=== PATIENT | female | born 1950 | race Caucasian/White ===

== ENCOUNTER → 2016-05-31 | Day surgery (SDC) | payer MEDICARE ==
[~2016-05-31] MED LIST: ASPI325T PO; BIOT1SUB SL; DIPH25CA PO; FURO1TAB60 PO; HYDR-3533 PO; IBUP-988 PO; LACTATED RINGER'S 1000 ML INJ 1,000 ML ONE; LACTCAP8 PO; LISI-515 PO; MAGN100T2 PO; METF500T PO; METO25TA3 PO; OMEGCAP19 PO; POTA10CA PO; PROPOFOL 500 MG/50 ML BTL IV ONE; REST15CA PO; SYNT25TA PO; ZOCO20TA PO
--- NOTE | 2016-05-31 13:00 | GIPROC ---
[facility] [address] [facility], [address] COLONOSCOPY PROCEDURE REPORT EXAM DATE: 05/31/2016 PATIENT NAME: Felicitas Aguilar MR #: [id number] BIRTHDATE: 1950 ENDOSCOPIST: Pallavi Walden MD ORDER #: [id number] TECHNICAL TESTING ENGINEER: Nadira Dc RN STATUS: outpatient INDICATIONS: The patient is a 66 yr old female here for a colonoscopy due to patient's immediate family history of colon cancer PROCEDURE PERFORMED: Colonoscopy, diagnostic MEDICATIONS: None and Per Anesthesia. PREP QUALITY: The [place] Bowel Prep Score was Right colon 2, Mid colon 2, and Left colon 3. Total = 7. PREP TYPE:GoLytely ESTIMATED BLOOD LOSS: None CONSENT: The patient understands the risks and benefits of the procedure and understands that these risks include, but are not limited to: sedation, allergic reaction, infection, perforation and/or bleeding. Alternative means of evaluation and treatment include, among others: physical exam, x-rays, and/or surgical intervention. The patient elects to proceed with this endoscopic procedure. medical equipment was checked for proper function. Hand hygiene and appropriate measures for infection prevention was taken. After the risks, benefits and alternatives of the procedure were thoroughly explained, Informed consent was verified, confirmed and timeout was successfully executed by the treatment team. A digital exam revealed external hemorrhoids The EC-[id number] ([id number]) endoscope was introduced through the anus and advanced to the cecum, which was identified by both the appendix and ileocecal valve. The instrument was then slowly withdrawn as the colon was fully examined. COLON FINDINGS: Moderate diverticulosis was noted in the sigmoid colon. No bleeding was noted from the diverticulosis. Retroflexed views revealed internal hemorrhoids and Retroflexed views revealed small internal hemorrhoids The scope was then completely withdrawn from the patient and the procedure terminated. PROCEDURE WITHDRAWAL TIME:6minutes ADVERSE EVENTS: There were no complications. IMPRESSIONS: 1. Moderate diverticulosis was noted in the sigmoid colon 2. Retroflexed views revealed internal hemorrhoids 3. Retroflexed views revealed small internal hemorrhoids 4. Revealed external hemorrhoids RECOMMENDATIONS: 1. Benefiber 2 tsp daily 2. Continue surveillance 3. Yearly hemoccult 4. High fiber diet 5. No seeds, nuts and popcorn in diet RECALL: Return 5 years Colonoscopy Pallavi Walden MD eSigned: Pallavi Walden MD 05/31/2016 12:59 PM cc: Timbo Hartman and Uriel Gilmore M.D. PATIENT NAME: Felicitas Aguilar MR#: [id number]
== END | disposition home or self-care (01) ==
LOC: ESDC 11:00
PROVIDERS: ATTEND Internal Medicine Gastroenterology
DX: Z12.11 Encounter for screening for malignant neoplasm of colon (principal); K57.90 Diverticulosis of intestine, part unspecified, without perforation or abscess without bleeding; K64.8 Other hemorrhoids; K64.4 Residual hemorrhoidal skin tags; K21.9 Gastro-esophageal reflux disease without esophagitis; K29.70 Gastritis, unspecified, without bleeding; K20.9 Esophagitis, unspecified
CPT/HCPCS: 00740; 00810; 43239; 45378; 88305; 88312; J3010; J7120

== ENCOUNTER 2016-06-15 13:12 | Inpatient (IN) | payer MEDICARE ==
[~2016-06-15] VITALS: Ht 162.6 cm; Wt 125.0 kg
[~2016-06-15 13:12] MED LIST changes: -BIOT1SUB SL; -IBUP-988 PO; -LACTATED RINGER'S 1000 ML INJ 1,000 ML ONE; -LACTCAP8 PO; -OMEGCAP19 PO; -PROPOFOL 500 MG/50 ML BTL IV ONE
[2016-06-27] MEDS ORDERED: LACTCAP8 PO (14:37)
[2016-06-27] MEDS ORDERED: BIOT1SUB SL (14:37)
[2016-06-28] MEDS ORDERED: ceFAZolin 2 GM PREMIX 50 ML IV SCH (06:00)
[2016-06-28] MEDS ORDERED: ACETAMINOPHEN 1000 MG/100 ML VIAL IV SCH (06:00)
[2016-06-28] MEDS ORDERED: POVIDONE IODINE 5% (ANTISEPSIS KIT) 4 APPLICATIONS EACH NARE PRN (06:00)
[2016-06-28] MEDS ORDERED: METOPROLOL TARTRATE 25 MG TAB PO PRN (06:00)
[2016-06-28] MEDS ORDERED: metroNIDAZOLE 500 MG INJ 100 ML IV SCH (06:00)
[2016-06-28] MEDS ORDERED: SCOPOLAMINE 1.5 MG PATCH T-DERMAL SCH (06:00)
[2016-06-28] MEDS ORDERED: APREPITANT 40 MG CAP PO SCH (06:00)
[2016-06-28] MEDS ORDERED: INSULIN HUMAN REGULAR 1,000 UNITS/10 ML VIAL SQ PRN (06:00)
[2016-06-28] MEDS ORDERED: ONDANSETRON HCL 4 MG/2 ML VIAL IV PUSH SCH (06:00)
[2016-06-28] MEDS ORDERED: LACTATED RINGER'S 1000 ML IV PRN (06:00)
[2016-06-28] MEDS ORDERED: SODIUM CHLORID 0.9% 500 ML IV PRN (06:00)
[2016-06-28] MEDS ORDERED: CHLORHEXIDINE GLUCONATE 2 % 1 PACK (2 CLOTHS) TOPICAL PRN (06:00)
[2016-06-28] MEDS ORDERED: OMEGCAP19 PO (06:32)
[2016-06-28] MEDS ORDERED: BUPIVACAINE/EPINEPHRINE 0.25% 50 ML VIAL ONE (06:34)
[2016-06-28 06:40] VITALS: BP 112/59; PULSE 61; RESP 16; TEMP 97.7; O2SAT 96
[2016-06-28] MEDS ORDERED: fentaNYL CITRATE 250 MCG/5 ML AMP ONE (06:59)
[2016-06-28] MEDS ORDERED: MORPHINE SULFATE 4 MG/ML INJ ONE (06:59)
[2016-06-28] MEDS ORDERED: DICLOFENAC SODIUM 37.5 MG/ML VIAL IV PUSH ONE (06:59)
[2016-06-28] MEDS ORDERED: MIDAZOLAM HCL 2 MG/2 ML VIAL ONE (07:31)
[2016-06-28] MEDS ORDERED: METHYLENE BLUE 100 MG/10 ML VIAL IV ONE (08:44)
[2016-06-28] MEDS: 1/2 NS + KCL 20 MEQ INJ 1,000 ML IV SCH ×4 (10:01→22:47)
[2016-06-28] MEDS ORDERED: MORPHINE SULFATE 30 MG/30 ML PCA IV SCH (10:15)
[2016-06-28] MEDS ORDERED: ONDANSETRON HCL 4 MG/2 ML VIAL IV PRN (10:15)
[2016-06-28] MEDS ORDERED: SODIUM CHLORIDE 0.9% FLUSH 10 ML FLUSH IV FLUSH PRN (10:15)
[2016-06-28] MEDS ORDERED: diphenhydrAMINE HCL 50 MG/ML VIAL IV PRN (10:15)
[2016-06-28] MEDS ORDERED: NALOXONE HCL 0.4 MG/ML AMP IV PRN (10:15)
[2016-06-28] MEDS ORDERED: ACETAMINOPHEN 325MG/HYDROcodone 7.5MG/15ML UDC PO PRN (10:15)
[2016-06-28] MEDS ORDERED: ENALAPRILAT 1.25 MG/ML VIAL IV PUSH PRN (10:15)
[2016-06-28] MEDS ORDERED: diphenhydrAMINE HCL ELIXIR 12.5 MG/5 ML CUP PO PRN (10:15)
[2016-06-28] MEDS ORDERED: Post-op Orders (for Pharmacy) MISC OTHER ONE (10:33)
[2016-06-28] MEDS ORDERED: *HYDROmorphone PF 1 MG VIAL PERIprocedural Use ONLY ONE (10:46)
[2016-06-28] MEDS: METOCLOPRAMIDE HCL 10 MG/2 ML VIAL IV PUSH SCH ×3 (11:00→22:46)
[2016-06-28] MEDS ORDERED: *ONDANSETRON 4 MG VIAL PERIprocedural Use ONLY ONE (11:07)
[2016-06-28] MEDS ORDERED: *PROMETHAZINE 25 MG/ML VIAL PERIprocedural use ONLY ONE (11:25)
[2016-06-28] MEDS: RESP: ALBUTEROL 2.5 MG/3 ML NEB (SCH) INH ×3 (12:00→20:01)
[2016-06-28] MEDS ORDERED: LACTATED RINGER'S 1000 ML INJ 1,000 ML IV ONE (12:00)
[2016-06-28] MEDS ORDERED: PROPOFOL 200 MG/20 ML AMP IV ONE (12:00)
[2016-06-28] MEDS ORDERED: ePHEDrine/NS 25 MG/5 ML SYR IV ONE (12:00)
[2016-06-28] MEDS: PCA - TOTAL MG MORPHINE DELIVERED PER SHIFT SCH ×2 (12:54→22:00)
[2016-06-28 14:28] VITALS: O2SAT 97
[2016-06-28] MEDS: metroNIDAZOLE 500 MG INJ 100 ML IV SCH ×2 (15:04→22:46)
[2016-06-28] MEDS: ENOXAPARIN SODIUM 40 MG/0.4 ML SYRINGE SQ SCH (15:09)
[2016-06-28 16:00] VITALS: BP 111/53; PULSE 79; RESP 17; TEMP 97.6; O2SAT 100
[2016-06-28 16:51] VITALS: O2SAT 99
[2016-06-28 20:00] VITALS: BP 115/58; PULSE 75; RESP 19; TEMP 96.8; O2SAT 100
[2016-06-28] MEDS: SODIUM CHLORIDE 0.9% FLUSH 10 ML FLUSH IV FLUSH SCH (20:53)
[2016-06-29] VITALS (11 sets, daily range): BP systolic 107–151; BP diastolic 55–67; PULSE 73–96; RESP 17–20; TEMP 97.8–98.3; O2SAT 92–98
[2016-06-29] MEDS: 1/2 NS + KCL 20 MEQ INJ 1,000 ML IV SCH ×4 (00:07→18:12)
[2016-06-29] MEDS: RESP: ALBUTEROL 2.5 MG/3 ML NEB (SCH) INH ×6 (00:45→21:16)
[2016-06-29] MEDS: metroNIDAZOLE 500 MG INJ 100 ML IV SCH (04:29)
[2016-06-29] MEDS: METOCLOPRAMIDE HCL 10 MG/2 ML VIAL IV PUSH SCH (04:29)
[2016-06-29] MEDS: PCA - TOTAL MG MORPHINE DELIVERED PER SHIFT SCH ×2 (04:30→14:00)
[2016-06-29 04:39] LABS: BICARBONATE 26.2 MEQ/L (21.0-32.0); MAGNESIUM 2.1 MG/DL (1.5-2.5); POTASSIUM 4.3 MEQ/L (3.5-5.1)
[2016-06-29 04:43] LABS: AUTOMATED NEUTROPHIL # 8.6 TH/MM3 (1.8-7.7); BASOPHIL % 0.2 % (0.0-2.0); EOSINOPHIL # 0.1 TH/MM3 (0-0.4); EOSINOPHIL % 0.7 % (0.0-4.0); HEMATOCRIT 34.2 % (35.0-46.0); HEMO FLAGS DIFF FINAL; LYMPH % 7.5 % (9.0-44.0); LYMPHOCYTE # 0.8 TH/MM3 (1.0-4.8); MEAN CELL VOLUME 90.5 FL (80.0-100.0); MEAN CORPUSCULAR HEMOGLOBIN 29.6 PG (27.0-34.0); MEAN CORPUSCULAR HGB CONC 32.7 % (32.0-36.0); MONO % 6.2 % (0.0-8.0); NEUT % 85.4 % (16.0-70.0); PLATELET COUNT 211 TH/MM3 (150-450); RED BLOOD COUNT 3.77 MIL/MM3 (4.00-5.30); RED CELL DISTRIBUTION WIDTH 14.6 % (11.6-17.2); WHITE BLOOD COUNT 10.1 TH/MM3 (4.0-11.0)
[2016-06-29] MEDS: PANTOPRAZOLE SOD 40 MG DELAYED RELEASE TAB PO SCH (08:40)
[2016-06-29] MEDS: SODIUM CHLORIDE 0.9% FLUSH 10 ML FLUSH IV FLUSH SCH ×2 (08:40→21:00)
[2016-06-29] MEDS ORDERED: METOCLOPRAMIDE HCL 10 MG/2 ML VIAL IV PUSH PRN (11:00)
[2016-06-29] MEDS: LISINOPRIL 20 MG TAB PO SCH (12:28)
[2016-06-29] MEDS: LEVOTHYROXINE SODIUM 25 MCG TAB PO SCH (12:28)
--- NOTE | 2016-06-29 14:48 | HHI.PR ---
Subjective Subjective Notes 66yo female POD#1 VSG. Sitting up in bed, in no acute distress. Passing flatus Objective Vitals/I&O Vital Signs Date Time Temp Pulse Resp B/P Pulse Ox O2 Delivery O2 Flow Rate FiO2 06/29/16 14:08 18 06/29/16 14:00 18 06/29/16 12:00 98.2 77 17 131/60 92 06/29/16 09:02 98 21 06/29/16 08:00 98.3 79 17 119/58 96 06/29/16 04:45 97.8 81 18 107/55 95 06/29/16 04:30 20 06/29/16 00:46 97 06/29/16 00:24 97.8 73 20 126/58 94 06/28/16 22:00 16 06/28/16 20:00 96.8 75 19 115/58 100 06/28/16 16:51 99 21 06/28/16 16:00 97.6 79 17 111/53 100 Vital Signs Date Time Temp Pulse Resp B/P Pulse Ox O2 Delivery O2 Flow Rate FiO2 06/29/16 14:08 18 06/29/16 12:00 98.2 77 131/60 92 06/29/16 09:02 21 06/28/16 12:30 Nasal Cannula 2 Labs Laboratory Tests Test 06/29/16 03:46 White Blood Count 10.1 Red Blood Count 3.77 Hemoglobin 11.2 Hematocrit 34.2 Mean Corpuscular Volume 90.5 Mean Corpuscular Hemoglobin 29.6 Mean Corpuscular Hemoglobin 32.7 Concent Red Cell Distribution Width 14.6 Platelet Count 211 Mean Platelet Volume 8.6 Neutrophils (%) (Auto) 85.4 Lymphocytes (%) (Auto) 7.5 Monocytes (%) (Auto) 6.2 Eosinophils (%) (Auto) 0.7 Basophils (%) (Auto) 0.2 Neutrophils # (Auto) 8.6 Lymphocytes # (Auto) 0.8 Monocytes # (Auto) 0.6 Eosinophils # (Auto) 0.1 Basophils # (Auto) 0.0 CBC Comment DIFF FINAL Differential Comment Sodium Level 139 Potassium Level 4.3 Chloride Level 105 Carbon Dioxide Level 26.2 Anion Gap 8 Blood Urea Nitrogen 15 Creatinine 1.08 Estimat Glomerular Filtration 51 Rate Random Glucose 128 Calcium Level 8.5 Magnesium Level 2.1 Cardiovascular: Regular Lungs: Clear Abdomen: Post-op tenderness Extremities: Perfused Wound Wound : Wound Location: Abdomen Appearance: Clean & Dry A/P Assessment and Plan Continue with frequent position change and ambulation Continue to increase fluids as tolerated The exam, history, and the medical decision-making described in the above note were completed with the assistance of the mid-level provider. I reviewed and agree with the findings presented. I attest that I had a [id number] encounter with the patient on the same day, and personally performed and documented my assessment and findings in the medical record. Discharge Planning D/C home tomorrow Jason Munoz [facility] June 29, 2016 14:48 Matt Barth MD July 05, 2016 09:35
[2016-06-29] MEDS: ENOXAPARIN SODIUM 40 MG/0.4 ML SYRINGE SQ SCH (15:41)
[2016-06-29] MEDS: METOPROLOL TARTRATE 25 MG TAB PO SCH (21:34)
[2016-06-29] MEDS: ACETAMINOPHEN 325MG/HYDROcodone 7.5MG/15ML UDC PO PRN (21:40)
[2016-06-30] MEDS: 1/2 NS + KCL 20 MEQ INJ 1,000 ML IV SCH ×3 (02:01→10:01)
[2016-06-30] MEDS: LEVOTHYROXINE SODIUM 25 MCG TAB PO SCH (06:18)
[2016-06-30] MEDS: ACETAMINOPHEN 325MG/HYDROcodone 7.5MG/15ML UDC PO PRN (06:21)
[2016-06-30 08:00] VITALS: BP 125/59; PULSE 96; RESP 17; TEMP 98; O2SAT 94
[2016-06-30] MEDS: RESP: ALBUTEROL 2.5 MG/3 ML NEB (SCH) INH (08:57)
[2016-06-30 08:58] VITALS: O2SAT 97
[2016-06-30] MEDS: SODIUM CHLORIDE 0.9% FLUSH 10 ML FLUSH IV FLUSH SCH (09:00)
[2016-06-30] MEDS: LISINOPRIL 20 MG TAB PO SCH (09:08)
[2016-06-30] MEDS: METOPROLOL TARTRATE 25 MG TAB PO SCH (09:08)
[2016-06-30] MEDS: PANTOPRAZOLE SOD 40 MG DELAYED RELEASE TAB PO SCH (09:08)
--- NOTE | 2016-06-30 11:39 | HHI.PR ---
Subjective Subjective Notes POD#2 VSG Ambulating around room Voices no complaints. Feels good. Passing flatus Objective Vitals/I&O Vital Signs Date Time Temp Pulse Resp B/P Pulse Ox O2 Delivery O2 Flow Rate FiO2 06/30/16 08:58 97 21 06/30/16 08:00 98.0 96 17 125/59 06/28/16 12:30 Nasal Cannula 2 Cardiovascular: Regular Lungs: Clear Abdomen: Post-op tenderness Extremities: Perfused Wound Wound : Wound Location: Abdomen Appearance: Clean & Dry A/P Assessment and Plan Continue with frequent position change and ambulation Continue to increase fluids as tolerated, start protein shakes tomorrow The exam, history, and the medical decision-making described in the above note were completed with the assistance of the mid-level provider. I reviewed and agree with the findings presented. I attest that I had a [id number] encounter with the patient on the same day, and personally performed and documented my assessment and findings in the medical record. Discharge Planning D/C home today Jason Munoz June 30, 2016 11:39 Matt Barth MD July 05, 2016 09:36
[2016-06-30 12:00] VITALS: BP 121/56; PULSE 64; RESP 17; TEMP 95.8; O2SAT 98
--- NOTE | 2016-07-18 22:14 | MP ---
cc: MIRTA BARTH DATE OF : 1950 DATE OF SURGERY: 06/28/2016 PREOPERATIVE DIAGNOSIS: Morbid obesity with BMI of 47 complicated by essential hypertension, type 2 diabetes, obstructive sleep apnea. POSTOPERATIVE DIAGNOSIS: Morbid obesity with BMI of 47 complicated by essential hypertension, type 2 diabetes, obstructive sleep apnea. PROCEDURE Laparoscopic vertical sleeve gastrectomy over 36-Martiniquais bougie. SURGEON Mirta Barth MD. BUSINESS ANALYST SALES OPERATIONS: Renny Low MD. ANESTHESIA General endotracheal anesthesia ESTIMATED BLOOD LOSS Scant FINDINGS Fatty liver SPECIMEN None COMPLICATIONS None OPERATION Laparoscopic vertical sleeve gastrectomy over a 36-Martiniquais ViSiGi bougie. PROCEDURE IN DETAIL The patient was brought to the operating room and placed on the operating table in supine position, bilateral sequential inflation device placed on lower extremities. General anesthesia was instituted. Antibiotics was initiated. The abdomen was prepped and draped sterilely. A point 15 cm distal to the xiphoid in the midline was anesthetized with 0.25% Marcaine with epinephrine. A skin incision was made, 5-mm OptiView port placed under direct vision and pneumoperitoneum created. Under direct vision, three 5-mm left upper quadrant, a 15-mm right upper quadrant, 5-mm right upper quadrant ports placed. Prior to placement of all ports the skin and peritoneum were anesthetized with 0.25% Marcaine with epinephrine. The patient was placed in reverse Trendelenburg position left side up, the Rose-Flex retractor was placed. The left lobe of the liver was retracted. The vasculature along the greater curvature of the stomach was using harmonic scalpel starting a distance 5-cm proximal to the pylorus and carried towards the angle of His. The angle of His was taken down bluntly. Posterior ligamentous attachments were sharply . A 36-Martiniquais ViSiGi bougie was placed at the start of the case, was placed on suction. Division of the stomach started 5 cm proximal to the pylorus and carried towards the angle of His to completely excise approximately 80% of the stomach. This was performed using an [place] Flex stapler at the pylorus. The first firing was with a black load, followed by a 5 green loads. All staple loads were reinforced with SeamGuard. A distance of 2 cm was left from the angle incisura and the staple line and a distance of 1 cm left from the GE junction and the staple line. The pylorus was then occluded, methylene blue tinged saline was instilled. There was no evidence of extravasation. The gastrocolic ligament was then sutured to the posterior leaflet of the SeamGuard using a 2-0 Vicryl suture in a running manner. Bleeding points were controlled with Evicel. The excised stomach was removed from the peritoneal cavity through the 15-mm port site in an Endopouch. The fascia at the 15-mm port site was approximated with 0 Vicryl suture. The CO2 was then released, all ports were removed, all skin incisions closed with 4-0 Monocryl. The abdominal wall was cleaned. A sterile dressing was placed. The patient was awakened and taken to the recovery room. MD EV Robert/ROBERT /11:01 AM /9:20 PM MTDKim
== END 2016-06-30 13:05 | disposition home or self-care (01) | DRG 621 ==
LOC: HSDI 06-28 05:24 → N07B 06-28 12:48
PROVIDERS: ADMIT Surgery; ATTEND Surgery
PROC: 0DB64Z3 Excision of Stomach, Percutaneous Endoscopic Approach, Vertical (ICD-10-PCS; principal; 2016-06-28 08:04)
DX: E66.01 Morbid (severe) obesity due to excess calories (principal); E11.22 Type 2 diabetes mellitus with diabetic chronic kidney disease; I50.9 Heart failure, unspecified; J44.9 Chronic obstructive pulmonary disease, unspecified; G47.30 Sleep apnea, unspecified; Z68.42 Body mass index [BMI] 45.0-49.9, adult; I25.10 Atherosclerotic heart disease of native coronary artery without angina pectoris; N18.3 Chronic kidney disease, stage 3 (moderate); I12.9 Hypertensive chronic kidney disease with stage 1 through stage 4 chronic kidney disease, or unspecified chronic kidney disease; Z87.891 Personal history of nicotine dependence; Z80.0 Family history of malignant neoplasm of digestive organs
CPT/HCPCS: 76937; 80048; 83735; 85025; 94150; 94640; 94664; J0131; J0690; J1130; J1170; J1650; J2250; J2270; J2405; J2550; J2765; J3010; J7120; J7613; J8501